=== PATIENT | male | born 1990 | race Caucasian/White ===

== ENCOUNTER 2017-12-12 23:02 | Emergency (ER) | payer BC ==
[2017-12-13] MEDS ORDERED: LIDOCAINE 4%/TETRACAINE 0.5%/EPI 0.18% 5 ML TOPICAL SOLN TOP ONE (00:14)
[2017-12-13] MEDS ORDERED: ONDANSETRON 4 MG TAB.RAPDIS PO ONE (00:16)
--- NOTE | 2017-12-13 00:21 | ER Document Report ---
ED General - General Chief Complaint: Head Injury Stated Complaint: HEAD INJURY Time Seen by Provider: 12/13/17 00:03 Mode of Arrival: Ambulatory Information source: Patient TRAVEL OUTSIDE OF THE [place] IN LAST 30 DAYS: No - HPI Notes: Patient is a otherwise healthy 27-year-old male presents to the emergency department with report that a compound of both fell his upper scalp sustaining laceration and he felt lightheaded following this and since that time is felt tired and slightly disoriented and has had a progressive headache. The patient had a moderate amount of bleeding from the wound. His tetanus is up-to-date. The patient denies any neck pain back pain chest pain shortness of breath. He reports some nausea but denies any vomiting he denies any difficulty breathing. No fever or chills. - Related Data Allergies/Adverse Reactions: quetiapine [From Seroquel] Allergy (Verified 12/12/17 23:16) Past Medical History - General Information source: Patient - Social History Smoking Status: Never Smoker Chew tobacco use (# tins/day): No Frequency of alcohol use: Rare Drug Abuse: None Lives with: Alone Family History: Reviewed & Not Pertinent Patient has suicidal ideation: No Patient has homicidal ideation: No Renal/ Medical History: Denies: Hx Peritoneal Dialysis Past Surgical History: Reports: Hx Oral Surgery Review of Systems - Review of Systems Notes: REVIEW OF SYSTEMS: CONSTITUTIONAL : Denies fever, chills, or sweats. Denies recent illness. EENT: Denies eye, ear, throat, or mouth pain or symptoms. Denies nasal or sinus congestion or discharge. Denies throat, tongue, or mouth swelling or difficulty swallowing. CARDIOVASCULAR: Denies chest pain. Denies palpitations or racing or irregular heart beat. Denies ankle edema. RESPIRATORY: Denies cough, cold, or chest congestion. Denies shortness of breath, difficulty breathing, or wheezing. GASTROINTESTINAL: Denies abdominal pain or distention. Denies vomiting, or diarrhea. Denies blood in vomitus, stools, or per rectum. Denies black, tarry stools. Denies constipation. GENITOURINARY: Denies difficulty urinating, painful urination, burning, frequency, blood in urine, or discharge. MUSCULOSKELETAL: Denies back or neck pain or stiffness. Denies joint pain or swelling. SKIN: Denies rash, lesions or sores. HEMATOLOGIC : Denies easy bruising or bleeding. LYMPHATIC: Denies swollen, enlarged glands. NEUROLOGICAL: Denies passing out or loss of consciousness. Denies weakness or paralysis or loss of use of either side. Denies problems with gait or speech. Denies sensory loss, numbness, or tingling. Denies seizures. PSYCHIATRIC: Denies anxiety or stress. Denies depression, suicidal ideation, or homicidal ideation. ALL OTHER SYSTEMS REVIEWED AND NEGATIVE. Dictation was performed using [employer] voice recognition software Physical Exam - Vital signs Vitals: Temp Pulse Resp BP Pulse Ox 98.3 F 75 18 113/75 97 12/12/17 23:12 12/12/17 23:12 12/12/17 23:12 12/12/17 23:12 12/12/17 23:12 - Notes Notes: PHYSICAL EXAMINATION: GENERAL: Well-appearing, well-nourished and in no acute distress. HEAD: Upper right vertex laceration 3 cm, no obvious exposed bone or foreign body. No crepitance or obvious deformity. No evidence for infection. EYES: Pupils equal round and reactive to light, extraocular movements intact, sclera anicteric, conjunctiva are normal. ENT: Nares patent, oropharynx clear without exudates. Moist mucous membranes. NECK: Normal range of motion, supple without lymphadenopathy LUNGS: Breath sounds clear to auscultation bilaterally and equal. No wheezes rales or rhonchi. HEART: Regular rate and rhythm without murmurs ABDOMEN: Soft, nontender, nondistended abdomen. No guarding, no rebound. No masses appreciated. Musculoskeletal: Normal range of motion, no pitting or edema. No cyanosis. NEUROLOGICAL: Cranial nerves grossly intact. Normal speech, normal gait. Normal sensory, motor exams PSYCH: Normal mood, normal affect. SKIN: Warm, Dry, normal turgor, no rashes or lesions noted. Withdrawal Course - Re-evaluation Re-evalutation: 12/13/17 00:21 Following discussion of risks, alternatives, benefits, the patient had the scalp wound 3 cm cleaned by nursing and topical LET anesthetic agent was placed upon the wound for pain control and hemostasis, then the wound was cleaned and reapproximated and closed by myself using Dermabond with good result. Patient tolerated the procedure well. Complications none. Blood loss negligible. 12/13/17 01:[address] is negative. Patient was ambulatory without complaint. No evidence for acute intracranial injury or skull fracture. - Vital Signs Vital signs: Temp Pulse Resp BP Pulse Ox 98.3 F 75 18 113/75 97 12/12/17 23:12 12/12/17 23:12 12/12/17 23:12 12/12/17 23:12 12/12/17 23:12 Discharge - Discharge Clinical Impression: Head injury Qualifiers: Encounter type: initial encounter Qualified Code(s): S09.90XA - Unspecified injury of head, initial encounter Laceration of scalp Qualifiers: Encounter type: initial encounter Qualified Code(s): S01.01XA - Laceration without foreign body of scalp, initial encounter Condition: Stable Disposition: HOME, SELF-CARE Instructions: Head Injury Precautions ([facility]), Laceration Care ([facility]) Additional Instructions: Keep wound clean and dry. Stand up slowly. Return to E.D. in case of vomiting, severe headache. Take Tylenol or ibuprofen as directed for pain. Forms: Return to Work
--- NOTE | 2017-12-13 00:58 | RADIOLOGY REPORT (SQ) ---
EXAM DESCRIPTION: CT HEAD WITHOUT CLINICAL HISTORY: head injury with headache COMPARISON: None available TECHNIQUE: Axial CT of the head obtained from the skull apex to the skull base without contrast. FINDINGS: No acute intracranial hemorrhage identified. No mass, mass effect, shift of the midline, abnormal extra-axial fluid collection or CT evidence of acute ischemic change identified. The ventricular system is unremarkable. No acute abnormalities of the supratentorial white matter, basal ganglia, cerebellum, or brainstem. The visualized paranasal sinuses and the mastoids are clear. No skull fracture identified. Visualized orbits and globes are unremarkable. DLP:1070.38 mGy-cm IMPRESSION: 1. No acute intracranial abnormality identified. This exam was performed according to our departmental dose-optimization program, which includes automated exposure control, adjustment of the mA and/or kV according to patient size and/or use of iterative reconstruction technique.
[2017-12-13 01:58] VITALS: BP 115/71
== END 2017-12-13 01:39 | disposition home or self-care (01) ==
LOC: ER 23:02
DX: S01.01XA Laceration without foreign body of scalp, initial encounter (principal); W21.89XA Striking against or struck by other sports equipment, initial encounter; Y92.009 Unspecified place in unspecified non-institutional (private) residence as the place of occurrence of the external cause; R42 Dizziness and giddiness; R51 Headache; R41.0 Disorientation, unspecified; R11.0 Nausea; R53.83 Other fatigue; Z88.8 Allergy status to other drugs, medicaments and biological substances
CPT/HCPCS: 99284; 82962; 70450; 12002; S0119; J3490

== ENCOUNTER 2017-12-16 19:31 | Emergency (ER) | payer BC ==
[2017-12-16] MEDS ORDERED: NORMAL SALINE 1000 ML 1,000 ML IV ONE (20:09)
[2017-12-16] MEDS ORDERED: ONDANSETRON HCL INJ/PF 4 MG/2 ML SDV IV ONE (20:09)
--- NOTE | 2017-12-16 20:12 | ER Document Report ---
ED General - General Chief Complaint: Nausea/Vomiting Stated Complaint: VOMITING Time Seen by Provider: 12/16/17 20:03 Notes: 19-year-old male here with complaints of nausea vomiting and was using diarrhea ongoing since 9 AM this morning, approximately 11 hours ago, and has developed some abdominal cramping as well worse after vomiting. He has tried taking over- the-counter nausea medication with minimal relief. He has a friend who is sick with the same exact symptoms and he was with that friend yesterday. The friend initially thought it may be food poisoning. TRAVEL OUTSIDE OF THE [place] IN LAST 30 DAYS: No - Related Data Allergies/Adverse Reactions: quetiapine [From Seroquel] Allergy (Verified 12/12/17 23:16) Past Medical History - Social History Smoking Status: Never Smoker Chew tobacco use (# tins/day): No Frequency of alcohol use: Rare Drug Abuse: None Family History: Reviewed & Not Pertinent Patient has suicidal ideation: No Patient has homicidal ideation: No Renal/ Medical History: Denies: Hx Peritoneal Dialysis Past Surgical History: Reports: Hx Oral Surgery Review of Systems - Review of Systems Notes: See history of present illness for pertinent positive review of systems; otherwise all review of systems have been reviewed and are negative Physical Exam - Vital signs Vitals: Temp Pulse Resp BP Pulse Ox 98.2 F 125 H 18 114/65 97 12/16/17 19:50 12/16/17 19:50 12/16/17 19:50 12/16/17 19:50 12/16/17 19:50 - Notes Notes: PHYSICAL EXAMINATION: GENERAL: Well-appearing and in no acute distress. HEAD: Atraumatic, normocephalic. EYES: Pupils equal round and reactive to light, extraocular movements intact, sclera anicteric, conjunctiva are normal. ENT: nares patent, oropharynx clear without exudates. Moist mucous membranes. NECK: Normal range of motion, supple without lymphadenopathy LUNGS: CTAB and equal. No wheezes rales or rhonchi. HEART: Mildly tachycardic (low 110s) rate and regular rhythm without murmurs ABDOMEN: Soft, no tenderness. No facial grimacing/wincing upon palpation. No guarding, no rebound. EXTREMITIES: Normal range of motion, no pitting edema. No cyanosis. NEUROLOGICAL: Cranial nerves grossly intact. Normal sensory/motor exams. PSYCH: Normal mood, normal affect. SKIN: Warm, Dry, normal turgor, no rashes or lesions noted Course - Re-evaluation Re-evalutation: 12/16/17 20:11 MEDICAL DECISION MAKING: Concern for viral gastroenteritis versus foodborne illness His abdominal exam is unremarkable Will hydrate with a bag of fluids and IV Zofran Patient understands and agrees to the plan of care 12/16/17 20:52 Patient states he feels much better and nausea is resolved His heart rate has improved significantly and is in the 80s, tachycardia resolved Home with prescription Zofran and follow-up PCP next day or few He understands agrees plan of care - Vital Signs Vital signs: Temp Pulse Resp BP Pulse Ox 98.2 F 125 H 18 114/65 97 12/16/17 19:50 12/16/17 19:50 12/16/17 19:50 12/16/17 19:50 12/16/17 19:50 Discharge - Discharge Clinical Impression: Nausea vomiting and diarrhea Condition: Good Disposition: HOME, SELF-CARE Additional Instructions: Use the prescribed medications as needed for your vomiting and nausea. Stay hydrated with Gatorade. You were seen in the emergency department at [facility]. If you were given any sedating medications, be sure not to operate heavy machinery (example - driving) and be sure you are not too sedated to walk appropriately. Please followup with your primary physician in the next few days for further management/evaluation. Please return to the emergency department for worsening of symptoms or any symptom that you deem to be concerning or life-threatening. Thank you for allowing us to be part of your care. Prescriptions: Ondansetron [Zofran Odt 4 mg Tablet] 1 tab PO Q4HP PRN #15 tab.rapdis PRN Reason: For Nausea/Vomiting
[2017-12-16 21:09] VITALS: BP 120/71
== END 2017-12-16 21:09 | disposition home or self-care (01) ==
LOC: ER 19:31
DX: R11.2 Nausea with vomiting, unspecified (principal); R19.7 Diarrhea, unspecified; R10.84 Generalized abdominal pain
CPT/HCPCS: 99283; 96374; J2405; J7030

== ENCOUNTER 2019-02-03 00:36 | Emergency (ER) | payer BC, OTHER ==
--- NOTE | 2019-02-03 04:38 | ER Document Report ---
HPI - HPI Time Seen by Provider: 02/03/19 04:23 Pain Level: 3 Context: Patient is a 28-year-old male that comes emergency department for chief complaint of itchiness and redness around the tattoo that he just received on his right arm, this started on Tuesday and has not resolved. He is applying a topical lotion/cream. He denies there being color involved. He has not had this reaction in the past. He denies fever/chills, open wounds, draining, swelling of the arm, or any other reported symptoms. Past Medical History - General Information source: Patient - Social History Smoking Status: Unknown if Ever Smoked Drug Abuse: None Lives with: Spouse/Significant other Family History: Reviewed & Not Pertinent - Medical History Medical History: Negative Renal/ Medical History: Denies: Hx Peritoneal Dialysis Past Surgical History: Reports: Hx Oral Surgery - Immunizations Immunizations up to date: Yes Hx Diphtheria, Pertussis, Tetanus Vaccination: Yes Vertical Provider Document - CONSTITUTIONAL General Appearance: WD/WN, No Apparent Distress - INFECTION CONTROL TRAVEL OUTSIDE OF THE [place] IN LAST 30 DAYS: No - HEENT HEENT: Atraumatic, Normal ENT Exam, Normocephalic - NECK Neck: Normal Inspection - RESPIRATORY Respiratory: Breath Sounds Normal, No Respiratory Distress - CARDIOVASCULAR Cardiovascular: Regular Rate, Regular Rhythm - GI/ABDOMEN Gastrointestinal: Abdomen Soft, Abdomen Non-Tender - BACK Back: Normal Inspection - MUSCULOSKELETAL/EXTREMETIES Musculoskeletal/Extremeties: MAEW, FROM, Non-Tender - NEURO Level of Consciousness: Awake, Alert, Appropriate Motor/Sensory: No Motor Deficit, No Sensory Deficit - DERM Integumentary: Rash - Tattoo ranging over the arm above the elbow on the right extremity, area appears irritated, mildly erythematous, mildly warm, however there is no induration, fluctuance, crusting, wound/skin openings, drainage, or concerning abnormalities otherwise. Normal elbow, shoulder, hand, distal neurovascular exams Course - Vital Signs Vital signs: Temp Pulse Resp BP Pulse Ox 98.5 F 73 18 122/80 97 02/03/19 01:05 02/03/19 01:05 02/03/19 01:05 02/03/19 01:05 02/03/19 01:05 Discharge - Discharge Clinical Impression: Skin rash Condition: Stable Disposition: HOME, SELF-CARE Additional Instructions: Your evaluation is consistent with a hypersensitivity reaction to the tattoo pigment. I recommend the topical triamcinolone as treatment for this, I also recommend the prescribed cetirizine daily for the next week or so. Symptoms should resolve with time. Follow-up with primary care. Return immediately for any signs of infection including any openings in the skin, swelling, increased redness, fever/chills, pus drainage, or any other concerning symptoms. Prescriptions: Cetirizine HCl [24Hour Allergy] 10 mg PO DAILY #30 tablet Triamcinolone Acetonide [Aristocort 0.025% Cream] 1 applic TP BID #30 gram
[2019-02-03 04:43] VITALS: BP 119/76
== END 2019-02-03 04:47 | disposition home or self-care (01) ==
LOC: ER 00:36
DX: R21 Rash and other nonspecific skin eruption (principal)
CPT/HCPCS: 99283